=== PATIENT | female | born 1950 | race Caucasian/White ===

== ENCOUNTER 2024-06-04 18:06 | Emergency (ER) | payer OTHER ==
[~2024-06-04] VITALS: Ht 165.1 cm; Wt 73.0 kg
--- NOTE | 2024-06-04 18:25 | ECG ---
[facility] Test Date: 2024-06-04 Test Time: 18:17:58 Pat Name: JONNY CARRERO Department: ED Room: Gender: F Shuttle Bus Driver: JACKIE : 1950 Requested By: SILVANA HOPKINS Order Number: [id number] Reading MD: Measurements Intervals [place] Rate: 72 P: 0 NM: 0 QRS: -3 QRSD: 111 T: 69 QT: 405 QTc: 444 Interpretive Statements Atrial fibrillation RSR' in V1 or V2, right VCD or RVH Please click the below link to view image of tracing.
[2024-06-04 20:10] VITALS: BP 132/74; PULSE 86; RESP 20; TEMP 98.9; O2SAT 97
[2024-06-04] MEDS: ALPRAZolam 0.5 MG TAB PO ONE (20:12)
[2024-06-04] MEDS ORDERED: ALPR0.5T PO (21:02)
--- NOTE | 2024-06-04 21:03 | ED.PDOC ---
Psychiatric HPI Comments Patient is a 73-year-old female who was brought into by EMS today for an anxiety event that began a few hours prior to arrival. Patient has a history of depression and anxiety and has utilized other medications in the past. Patient states due to insurance concerns, she has not been taking her medication regularly. Patient states that her son was murdered in 1995 and that she has not had a chance to morn and that event. Vital signs were stable on arrival. Patient denies any SI or HI. Chief Complaint: Anxiety Time Seen by MD: 18:10 Reviewed Notes: Nurses Notes, Marine Superintendent Notes Information Source: Patient, Emergency Med Personnel Mode of Arrival: EMS Severity: Able to Care for Self Severity of Pain: None Severity of Mental Status: Moderate Severity of Symptoms: Moderate Timing: Hours Duration: Since onset Prehospital treatment: None Presents with: Depression, Anxiety Quality: None Associated signs and symptoms: Depression, Anxiety Past Medical History PAST MEDICAL HISTORY: Anxiety, Depression Surgical History: Denies all surgeries TATTOOER History: No Pertinent TATTOOER History Family History Family History: Reviewed,noncontributory to illness, No family hx of Cancer, No family hx of DM, No family hx of Heart sawyer, No family hx of HTN, No family hx ofKidney sawyer, No family hx of Liver sawyer, No family hx of Lung sawyer, No family hx of Stroke Social History Smoker: Non-Smoker Alcohol: Denies ETOH Use Drugs: Denies Drug Use Lives In: Home Constitutional: denies: chills, diaphoresis, fatigue, fever, malaise, sweats, weakness, others EENTM: denies: blurred vision, double vision, ear bleeding, ear discharge, ear drainage, ear pain, ear ringing, eye pain, eye redness, hearing loss, mouth pain, mouth swelling, nasal discharge, nose bleeding, nose congestion, nose pain, photophobia, tearing, throat pain, throat swelling, voice changes, others Respiratory: denies: cough, hemoptysis, orthopnea, SOB at rest, shortness of breath, SOB with excertion, stridor, wheezing, others Cardiovascular: denies: chest pain, dizzy spells, diaphoresis, Dyspnea on exertion, edema, irregular heart beat, left arm pain, lightheadedness, palpitations, PND, syncope, others Gastrointestinal: denies: abdomen distended, abdominal pain, blood streaked bowels, constipated, diarrhea, dysphagia, difficulty swallowing, hematemesis, melena, nausea, poor appetite, poor fluid intake, rectal bleeding, rectal pain, vomiting, others Genitourinary: denies: abnormal vagina bleeding, burning, dyspareunia, dysuria, flank pain, frequency, hematuria, incontinence, pain, , vagina discharge, urgency, others Neurological: denies: dizziness, fainting, headache, left sided numbness, left sided weakness, numbness, paresthesia, pre-existing deficit, right sided numbness, right sided weakness, seizure, speech problems, tingling, tremors, weakness, others Musculoskeletal: denies: back pain, gout, joint pain, joint swelling, muscle pain, muscle stiffness, neck pain, others Integumetry: denies: bruises, change in color, change in hair/nails, dryness, laceration, lesions, lumps, rash, wounds, others Allergic/Immunocompromised: denies: Difficulty Healing, Frequent Infections, Hives, Itching, others Hematologic/Lymphatic: denies: anemia, blood clots, easy bleeding, easy bruising, swollen glands, others Endocrine: denies: excessive hunger, excessive sweating, excessive thirst, excessive urination, flushing, intolerance to cold, intolerance to heat, unexplained weight gain, unexplained weight loss, others Psychiatric: reports: anxiety, depression; denies: bipolar disorder, hopeless, panic disorder, schizophrenia, sleepless, suicidal, others Physical Exam General Appearance: Moderate Distress (Patient was in moderate distress due to anxiety concerns at time of evaluation.), Normal HEENT: Normal ENT Inspection, Pharynx Normal, TMs Normal Neck: Full Range of Motion, Non-Tender, Normal, Normal Inspection Respiratory: Chest Non-Tender, Lungs Clear, No Accessory Muscle Use, No Respiratory Distress, Normal Breath Sounds Cardiovascular: No Edema, No JVD, No Murmur, No Gallop, Normal Peripheral Pulses, Regular Rate/Rhythm Breast Exam: Deferred Gastrointestinal: No Organomegaly, Non Tender, No Pulsatile Mass, Normal Bowel Sounds, Soft Genitalia: Deferred Pelvic: Deferred Rectal: Deferred Extremities: No calf tenderness, Normal capillary refill, Normal inspection, Normal range of motion, Non-tender, No pedal edema Neurologic: Other ( Patient appears tearful and anxious at time of evaluation.) Cerebellar Function: Normal Reflexes: Normal Skin: Dry, Normal Color, Warm Lymphatic: No Adenopathy EKG EKG : Cardiac Rhythm: Afib Was a procedure done? Was a procedure done?: No Psych Differential Dx Psych. Differential Dx: Anxiety, Depression, Panic Disorder X-Ray, Labs, Meds, VS Vital Signs Date Time Temp Pulse Resp B/P (MAP) Pulse Ox O2 Delivery O2 Flow Rate FiO2 06/04/24 20:10 86 20 97 Room Air 06/04/24 20:10 98.9 83 20 132/74 (93) 97 98.9 06/04/24 18:20 72 06/04/24 18:16 98.1 79 20 112/66 (81) 99 Current Medications Medications (Trade) Dose Ordered Sig/Griffin Route Start Time Stop Time Status Last Admin Alprazolam (Xanax Tablet) 1 mg ONCE ONCE PO 06/04/24 18:30 06/04/24 18:31 DC 06/04/24 20:12 X-Ray, Labs, Meds, VS Comment Patient's EKG was remarkable for atrial fibrillation that it appears to be rate controlled. Patient states she does follow up with her doctor for that periodically. Patient responded well to medication dispensed. Advised patient to follow up with the primary care provider early next week for conversation is related to today's visit as well as medication management of her depression and anxiety and a cardiac evaluation to evaluate her AFib concerns. Time of 1ST Reevaluation: 20:58 Reevaluation 1ST: Improved Consultation: PCP, Cardiology, Psychiatry Patient Education/Counseling: Diagnosis, Treatment Family Education/Counseling: Diagnosis, Treatment Departure 1 Departure Time of Disposition: 20:58 Impression: Primary Impression: Anxiety Additional Impression: Depression Disposition: HOME / SELF CARE / HOMELESS Condition: Stable Additional Instructions: Advised patient utilize medication as needed for symptomatic relief. Patient needs to follow up with the primary care provider early next week for re- evaluation of her anxiety and depression needs as well as a probable cardiac referral to review her AFib history. e-Prescriptions Alprazolam (Xanax) 0.5 Mg Tb 1 TAB PO Q6HP PRN, #20 TAB Prov: SILVANA HOPKINS PAC 06/04/24 Discharged With: Self, Friend Critical Care Note Critical Care Time?: No Stability Stability form required: No Heart Score Heart Score: Heart Score Response (Comments) Value History Slightly Suspicious 0 EKG Repolarization Disturb 1 Age >65 2 Risk Factors No known risk factors 0 Troponin N/A 0 Total 3 SILVANA HOPKINS [facility] Jun 04, 2024 21:03
== END 2024-06-04 21:14 | disposition home or self-care (01) ==
LOC: ER 18:06 → EDBD 18:06 → ER 21:14
DX: F41.9 Anxiety disorder, unspecified (principal); F32.A Depression, unspecified; Z79.899 Other long term (current) drug therapy
CPT/HCPCS: 93005